=== PATIENT | female | born 1970 ===

== ENCOUNTER 2021-03-04 09:02 | Outpatient (CLI) | payer OTHER | END 2021-03-04 09:07 | disposition home or self-care (01) | LOC: SONOGRAMA 09:02 | DX: R59.0 Localized enlarged lymph nodes (principal) ==

== ENCOUNTER 2022-11-11 14:48 | Outpatient (CLI) | payer OTHER | END 2022-11-11 14:56 | disposition home or self-care (01) | LOC: RAD 14:48 | DX: M79.672 Pain in left foot (principal) ==